=== PATIENT | female | born 1970 | race Caucasian/White ===

== ENCOUNTER 2023-05-09 10:28 | Outpatient (REF) | payer OTHER, SELFPAY ==
--- NOTE | ~2023-05-09 | XR_ITS ---
EXAMINATION: XR LUMBOSACRAL SPINE WITH OBLIQUES CLINICAL INFORMATION: Lumbar degenerative disc disease. COMPARISON: None available. TECHNIQUE: AP, both oblique, and lateral views of the lumbar spine. Lateral view of the lumbosacral junction. FINDINGS: Vertebral body heights are normal. At L2-L3, there is moderate degenerative disc disease, with vacuum disc phenomenon and a 4 mm retrolisthesis. At L4-L5, there is moderate posterior disc space narrowing. There is mild posterior disc space narrowing at L5-S1. The remaining disc spaces are well-maintained. No acute fracture or spondylolisthesis is seen. There is multi-level lower thoracic and lumbar spondylosis. The posterior elements are intact. There is facet arthropathy at L5-S1. The paravertebral soft tissues are unremarkable. There are right pelvic surgical clips. XR/XR lumbar spine 4V min IMPRESSION: 1. There is moderate degenerative disc disease at L2-L3 and L4-L5, and mild degenerative disc disease is seen at L5-S1. 2. There is multi-level lumbar spondylosis. 3. There is facet arthropathy at L5-S1.
== END 2023-05-09 10:29 | disposition home or self-care (01) ==
LOC: HO.HOSX 10:28
PROVIDERS: Visit Provider Neurological Surgery
DX: M51.36 Other intervertebral disc degeneration, lumbar region (principal)
CPT/HCPCS: 72110

== ENCOUNTER 2023-05-09 10:28 | Outpatient (AMB) | payer OTHER, SELFPAY ==
--- NOTE | 2023-05-09 10:34 | HO.SPINEOV ---
Intake Intake Visit Reasons: low back pain Intake Note: Ms. Nelson is here today c/o low back pain. MRI done @ [facility]/brought disc. Professor Of Psychiatry Required: No Assessment & Plan Assessment & Plan (1) Lumbar degenerative disc disease: Code(s): M51.36 - Other intervertebral disc degeneration, lumbar region Plan Dear colleague Thank you for referring Yolis Nelson to the office today with a chief complaint of back pain. HPI: This 53-year-old female as a 5 year history of low back pain and sacral pain with radiation down her hamstrings. The hamstrings feel too short. Extension of the back is very painful. She underwent all forms of injections, including SI joint injections and facet blocks without success. She had a right shoulder fusion in her 20s for which they took a autograft ffrom right iliac crest that resulted in residual pain. Sitting or driving is . She sits on a donut. 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 She walks with a limp of the right leg. Extension of the lumbar spine produces pain. There are no neurological deficits from motor sensation and reflexes. Radiological Studies: MRI done at [facility] on 10/31/2022 shows moderate degenerative disc disease L2-3 and L4-5 without spinal stenosis or nerve root compression. A flexion-extension x-ray today of the lumbar spine shows a grade 1 L4-5 spondylolisthesis without instability. Impression/Plan: This 53-year-old female is suffering from severe back pain with tightness in the hamstrings and burning sensation going down both legs that can not be explained by the MRI findings. I reviewed the MRI in detail with the patient and explained that the intensity of her symptoms are disproportional to the MRI findings. I did not offer her surgery. Thank you for allowing me to participate in your patients care. total time spent was 50 minutes in counseling ,coordination of plan, personal review of imaging, and discussing the findings. Hussein Grady MD, PhD Spine Fellowship Trained Neurosurgeon Director, [facility] Orders: Orders XR lumbar spine 4V min Today M51.36 - Other intervertebral disc degeneration, lumbar region Coding Level of Care Code New Pt Level 4 (06842) Diagnoses Lumbar degenerative disc disease M51.36
== END 2023-05-09 11:25 | disposition home or self-care (01) ==
PROVIDERS: Visit Provider Neurological Surgery
DX: M51.36 Other intervertebral disc degeneration, lumbar region (principal)
CPT/HCPCS: 99204

== ENCOUNTER 2023-09-05 15:30 | Outpatient (AMB) | payer OTHER, SELFPAY ==
--- NOTE | 2023-09-05 15:40 | HO.SPINEOV ---
Intake Intake Visit Reasons: R shoulder & neck pain Intake Note: Ms. Nelson is here today c/o right shoulder and neck pain. Hospice Nurse Required: No Assessment & Plan Assessment & Plan (1) Cervical radiculopathy: Code(s): M54.12 - Radiculopathy, cervical region Plan HPI: Yolis is a pleasant 53-year-old female comes in today as an established patient with a new complaint. She reports that she is being seen today for her neck pain with shooting pains into her bilateral upper extremities. She states that the shooting pain is worse on the right side versus the left. She states she has had neck pain ?my whole life and had a scapular fusion surgery when she was in her 20s. She reports that over the course of the last year her shooting pains into her bilateral arms have worsened. When describing her shooting pain she states that originates in her neck shoots over her bilateral shoulders down the back of her arms, over the elbow and into the middle 3 digits on her bilateral hands (phalanges 2-4). She reports associated symptoms of numbness/tingling, which is worse at the tips of her fingers. She states that overhead activities and articulation of her fingers worsens the pain, and that resting/lying down helps to alleviate the pain. She has tried a plethora of [id number] remedies, and has completed multiple at-home physical therapy regimens with no significant relief of symptoms. Exam: The patient has 5/5 strength in her upper and lower extremities. No significant sensational deficits. Reflexes are 2+ intact. She is able to ambulate well and rises from a seated position without difficulty. (+) Tinel's at the wrist bilaterally, (+) Phalen's bilaterally, (-) Griggs's, (-) clonus. Imaging review: X-ray imaging of the cervical spine completed in office today shows no acute spondylolisthesis or osseous abnormalities. Difficult to assess for soft tissue involvement. Plan: I will be sending the patient for a cervical MRI to rule out an acute impingement in the cervical spine which may be causing her radicular symptoms. The x-ray imaging done today is insufficient to rule this out. She was informed that she may also have carpal tunnel syndrome given her physical exam findings. We may also work her up with an EMG after receiving her cervical MRI results. Total amount of time spent in this visit was 30 minutes in discussion of symptoms, X-ray imaging results and subsequent plan of care Jeffery Grady MD,PhD [facility] Orders: Orders XR cervical spine 4V Today M54.2 - Cervicalgia Coding Level of Care Code Est Pt Level 4 (45516) Diagnoses Cervical radiculopathy M54.12
== END 2023-09-05 16:13 | disposition home or self-care (01) ==
PROVIDERS: Visit Provider Neurological Surgery
DX: M54.12 Radiculopathy, cervical region (principal)
CPT/HCPCS: 99214

== ENCOUNTER 2023-09-05 15:30 | Outpatient (REF) | payer OTHER, SELFPAY ==
--- NOTE | ~2023-09-05 | XR_ITS ---
EXAMINATION: XR CERVICAL SPINE CLINICAL INFORMATION: Cervicalgia. COMPARISON: None available. TECHNIQUE: Frontal and lateral (neutral, flexion and extension) views of the cervical spine are submitted. FINDINGS: There is bony demineralization. At C2-C3, there is a 2 mm anterolisthesis. At C3-C4, there is a 4 mm retrolisthesis and marked disc space narrowing. There is mild disc space narrowing at C4-C5 and C5-C6. The remaining disc spaces are relatively well-maintained. No acute fracture or spondylolisthesis is seen. There is no instability with flexion or extension. The posterior elements are intact. The dens is intact. No prevertebral soft tissue swelling is seen. XR/XR cervical spine 4V IMPRESSION: 1. There is multi-level cervical degenerative disc disease, most pronounced at C3-C4, where degenerative disc disease is marked. 2. No instability is seen with flexion or extension.
== END 2023-09-05 15:31 | disposition home or self-care (01) ==
LOC: HO.HOSX 15:30
PROVIDERS: Visit Provider Neurological Surgery
DX: M54.2 Cervicalgia (principal); M54.12 Radiculopathy, cervical region
CPT/HCPCS: 72050

== ENCOUNTER 2023-09-17 07:29 | Outpatient (REF) | payer OTHER, SELFPAY ==
--- NOTE | ~2023-09-17 | MR_ITS ---
MR CERVICAL SPINE WITHOUT CONTRAST CLINICAL INFORMATION: Cervical region radiculopathy COMPARISON: Cervical spine radiographs 09/05/2023. TECHNIQUE: MRI of the cervical spine was obtained using routine sequences without contrast. FINDINGS: There is retrosubluxation of C3 on C4, C4 on C5, and C5 on C6. Modic type I endplate signal changes at C3-C4. There is no additional bone marrow edema. There are no acute fractures. Vertebral body heights are maintained. Moderate disc volume loss at C3-C4. Cervical arterial flow voids are maintained. There are no significant extraspinal soft tissue findings. No cord signal changes. Partially imaged posterior fossa is unremarkable. C2-C3: Posterior disc contour is normal. Bilateral facet arthropathy. No central canal stenosis and no foraminal stenosis. C3-C4: Retrosubluxation. Disc osteophyte mildly narrows the central canal. Uncovertebral joint spurring and facet arthropathy result in mild to moderate right-sided foraminal stenosis. No central canal and no left foraminal stenosis. C4-C5: Retrosubluxation. Disc osteophyte without central canal stenosis. Uncovertebral joint spurring and facet arthropathy result in moderate right and mild left foraminal stenosis. C5-C6: Retrosubluxation. Disc osteophyte without central canal stenosis. Uncovertebral joint spurring and facet arthropathy result in moderate bilateral foraminal stenosis. C6-C7: Disc osteophyte without central canal stenosis. No foraminal stenosis. C7-T1: Disc contour is normal. No central canal stenosis and no foraminal stenosis. MR/MR cervical spine wo con IMPRESSION: Multilevel cervical spondylosis. Spondylitic changes result in mild to moderate right C3-C4, moderate right C4-C5, and moderate bilateral C5-C6 foraminal stenosis. There is no severe central canal stenosis within the cervical spine.
== END 2023-09-17 07:30 | disposition home or self-care (01) ==
LOC: HO.MRI 07:29
PROVIDERS: Visit Provider Physician Assistant
DX: M54.12 Radiculopathy, cervical region (principal)
CPT/HCPCS: 72141

== ENCOUNTER 2023-09-26 14:42 | Outpatient (AMB) | payer OTHER, SELFPAY ==
--- NOTE | 2023-09-26 14:44 | HO.SPINEOV ---
Intake Visit Reasons: MRI follow up Intake Note: Ms. Nelson is here today to F/u on Mri. School Psychological Examiner Required: No Assessment & Plan Assessment & Plan (1) Cervicalgia: Code(s): M54.2 - Cervicalgia Category: Medical Plan Dear colleague, On 09/26/2023, I saw for follow-up Yolis Nelson. We obtain an MRI of the cervical spine for ongoing severe constant neck shoulder pains and headaches. She had a right shoulder fusion done in the past and since then it has been downhill. We had an extensive discussion about possible mechanism causing her symptoms. I think it is related to the shoulder fusion as this puts extra stress on the remaining functioning joints and produces the muscular neck and shoulder pains. The MRI of the cervical spine shows mild degenerative changes but definitely no explanation for her symptoms. She has not a surgical candidate. I think this scheduled Botox treatment could be beneficial. I spent 35 minutes in his consult discussing the specific of her symptoms and answering questions. Hussein Grady MD, PhD Spine Fellowship Trained Neurosurgeon Director, [facility] Coding Level of Care Code Est Pt Level 4 (82524) Diagnoses Cervicalgia M54.2
== END 2023-09-26 15:25 | disposition home or self-care (01) ==
PROVIDERS: PCP Nurse Practitioner Adult Health; Visit Provider Neurological Surgery
DX: M54.2 Cervicalgia (principal)
CPT/HCPCS: 99214

== ENCOUNTER → 2023-09-26 14:42 | Outpatient (BNVA) | payer OTHER, SELFPAY | PROVIDERS: PCP Nurse Practitioner Adult Health; Visit Provider Neurological Surgery ==